=== PATIENT | male | born 1945 | race Two or more races ===

== ENCOUNTER 2017-07-06 15:26 | Emergency (ER) | payer OTHER ==
[~2017-07-06] VITALS: Ht 175.3 cm; Wt 82.6 kg
[2017-07-06] MEDS ORDERED: MORPHINE SULFATE 4 MG/ML SYR/VIAL IV ONE (17:45)
[2017-07-06] MEDS ORDERED: ONDANSETRON HCL 4 MG/2 ML VIAL IV ONE (17:45)
[2017-07-06] MEDS ORDERED: MEPERIDINE HCL (25 MG/ML) 1ML VIAL IV ONE (18:45)
[2017-07-06] MEDS ORDERED: HYDROcodone-ACET 10/325MG TAB PO ONE (21:15)
[2017-07-06] MEDS ORDERED: HYDROcodone-ACET 10/325MG TAB ONE (21:17)
[2017-07-06 21:25] VITALS: BP 147/44
== END 2017-07-06 21:25 | disposition home or self-care (01) ==
LOC: ER 15:26 → EDSEX 15:26 → EDBD 15:26 → ER 21:25
DX: S92.001A Unspecified fracture of right calcaneus, initial encounter for closed fracture (principal); E78.5 Hyperlipidemia, unspecified; I10 Essential (primary) hypertension; I25.810 Atherosclerosis of coronary artery bypass graft(s) without angina pectoris; W11.XXXA Fall on and from ladder, initial encounter; Y93.89 Activity, other specified; Y92.89 Other specified places as the place of occurrence of the external cause; Y99.8 Other external cause status
CPT/HCPCS: 29515; 73610; 96374; 96375; 99284; J2175; J2270; J2405